=== PATIENT | male | born 1990 | race American Indian/Alaskan Native ===

== ENCOUNTER 2016-06-14 19:06 | Emergency (ER) | payer SELFPAY ==
[2016-06-14 19:14] VITALS: BP 138/73; PULSE 88; RESP 20; TEMP 97.5; O2SAT 99
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
[2016-06-14] MEDS ORDERED: Bacitracin 500 Units/gm Oint Foilpak UD ONE ×2 (19:40→19:44)
--- NOTE | 2016-06-15 08:49 | RAD ---
PROCEDURE: Left Thumb radiographs. HISTORY: THUMB INJURY COMPARISON: None. TECHNIQUE: AP radiograph of the left hand, as well as spot oblique and lateral images of thumb were obtained. FINDINGS: LEFT THUMB: Normal left thumb, without fracture or focal lesion. Remainder of the left hand (as seen on the AP view) grossly unremarkable. JOINTS: Normal. SOFT TISSUES: Normal. OTHER FINDINGS: None. IMPRESSION: No radiographic evidence of acute fracture or dislocation.
--- NOTE | 2016-06-15 09:17 | RAD ---
PROCEDURE: Right Wrist Radiographs. HISTORY: thumb/ wrist injury, snuff box tenderness COMPARISON: None. FINDINGS: BONES: Normal. No fracture. JOINTS: Normal. No dislocation. SOFT TISSUES: Normal. OTHER FINDINGS: None. IMPRESSION: No radiographically apparent fracture. MRI can be obtained if there is concern for bone edema.
== END 2016-06-14 20:30 | disposition home or self-care (01) ==
LOC: C.ER 19:06
DX: S62.002A Unspecified fracture of navicular [scaphoid] bone of left wrist, initial encounter for closed fracture (principal); S62.502A Fracture of unspecified phalanx of left thumb, initial encounter for closed fracture; S51.002A Unspecified open wound of left elbow, initial encounter; S61.002A Unspecified open wound of left thumb without damage to nail, initial encounter; V18.0XXA Pedal cycle driver injured in noncollision transport accident in nontraffic accident, initial encounter; Y93.55 Activity, bike riding